=== PATIENT | male | born 1990 | race Two or more races ===

== ENCOUNTER 2022-09-01 12:25 | Emergency (ER) | payer OTHER ==
[~2022-09-01] VITALS: Ht 177.8 cm; Wt 84.4 kg
[2022-09-01] MEDS ORDERED: SIMVASTATIN20 MG PO (12:55)
[2022-09-01] MEDS ORDERED: LEXAPRO5 MG PO (12:55)
== END 2022-09-01 20:48 | disposition home or self-care (01) ==
LOC: ER 12:25
DX: I88.9 Nonspecific lymphadenitis, unspecified (principal); R10.2 Pelvic and perineal pain

== ENCOUNTER 2022-09-03 16:55 | Emergency (ER) | payer OTHER ==
[~2022-09-03] VITALS: Ht 177.8 cm; Wt 84.4 kg
[~2022-09-03 16:55] MED LIST: LEXAPRO5 MG PO; SIMVASTATIN20 MG PO
[2022-09-03] MEDS ORDERED: INTESTINEX680 M1 PO (19:46)
[2022-09-03] MEDS ORDERED: DICLOFENAC SODI75 MG PO (19:46)
[2022-09-03] MEDS ORDERED: PEPCID AC20 MG PO (19:46)
== END 2022-09-03 20:01 | disposition home or self-care (01) ==
LOC: ER 16:55
DX: R10.30 Lower abdominal pain, unspecified (principal); R19.7 Diarrhea, unspecified; Z20.822 Contact with and (suspected) exposure to COVID-19